=== PATIENT | female | born 1985 | race Caucasian/White ===

== ENCOUNTER 2017-04-24 00:26 | Emergency (ER) | payer MEDICAID ==
--- NOTE | 2017-04-28 01:31 | ER ---
ADMIT: 04/24/2017 RM/LOC: ER [facility] MR#: [id number] [address] [id number] AliciaSHAI GARDUNOEZEKIEL Godoy [address] [place] [address] Emergency Room Report SEX: F AGE: 31 : 1985 DATE: 04/24/2017 See T-sheet for complete H and P. ADDENDUM: A 31-year-old female, comes in with right knee pain after she tripped over a hose and fell onto her right knee just prior to arrival. On examination, she has a slight abrasion over her patella, but has no effusion, no deformity. The knee is stable and she can range of motion it. She can also bear weight. X-ray was done, which reveals no bony abnormality. The patient was given a shot of Toradol here and instructed to use ibuprofen 3 times a day for the next 4 to 5 days. She is to follow up with the regular physician if not improved. DIAGNOSIS: Right knee contusion. Ganesh Gan MD/ susan JOB #: [id number] CC: Ganesh Gan MD, Attending Physician Nacho Mayo MD, Family Physician
== END 2017-04-24 01:50 | disposition home or self-care (01) ==
LOC: ER 00:26
DX: S80.01XA Contusion of right knee, initial encounter (principal); W01.0XXA Fall on same level from slipping, tripping and stumbling without subsequent striking against object, initial encounter; Y92.009 Unspecified place in unspecified non-institutional (private) residence as the place of occurrence of the external cause

== ENCOUNTER 2017-05-13 17:41 | Emergency (ER) | payer MEDICAID ==
--- NOTE | 2017-05-16 12:41 | ER ---
ADMIT: 05/13/2017 RM/LOC: ER [facility] MR#: [id number] [facility] [address] [place] [id number] JOHANA GREENE [address] [place], [place] [id number] Emergency Room Report SEX: F AGE: 31 : 1985 DATE: 05/13/2017 Johana is a 31-year-old female, who presents to emergency room complaining of abdominal pain for one day. She says she has been having some cramping and a little bit of diarrhea on and off, but have not noticed any changes really in her bowel. She says this is a familiar pain. She feels that it could be her ovaries; however, she is in doubt if she has her ovaries because she said in [place] she had surgery and she had a total hysterectomy but then Dr. Cardozo told her that she still have her ovaries. So, when she arrived to the ER today, that is the first thing she said, "I have had a hysterectomy but my ovaries are in place and I think I may be having an ovarian cyst". So with that in mind, we went ahead and ordered some labs and ordered an ultrasound that did not show any fluid in cul-de-sac because there is no uterus, and Radiology reported no adnexas either. She was given a shot of Toradol, and we went ahead and discharged her with diagnosis of mild hematuria, irritable bowel, lower abdominal pain. She was given Bentyl. Her UA shows rbc's of 5. She was given instructions to follow up with her primary provider, eat foods with fiber, Bentyl for stomach, go home and rest, and follow up with Dr. Cardozo as needed. DALTON Castellon / Ajith Van MD / susan JOB #: [id number] CC: Ajith Van MD, Attending Physician Nacho Mayo MD, Family Physician
== END 2017-05-13 20:50 | disposition home or self-care (01) ==
LOC: ER 17:41
DX: K58.0 Irritable bowel syndrome with diarrhea (principal); R31.9 Hematuria, unspecified; F17.210 Nicotine dependence, cigarettes, uncomplicated; G40.909 Epilepsy, unspecified, not intractable, without status epilepticus; Z90.710 Acquired absence of both cervix and uterus; Z79.899 Other long term (current) drug therapy; Z88.1 Allergy status to other antibiotic agents; Z88.6 Allergy status to analgesic agent